=== PATIENT | male | born 1960 | race Caucasian/White ===

== ENCOUNTER 2022-11-13 15:38 | Outpatient (CLI) | payer OTHER ==
--- NOTE | 2022-11-18 10:09 | MRI Report ---
PROCEDURE: KNEE WO - LT INDICATIONS: LEFT KNEE PAIN TECHNIQUE: Noncontrast sagittal PD fast spin echo and T2 fast spin echo with fat saturation, sagittal 3-D gradie nt sequence with fat saturation; coronal T1 spin echo and PD fast spin echo with fat saturation, and axial PD fast spin echo with fat saturation through the knee. COMPARISON: None. FINDINGS: Image quality: Excellent. Menisci: There is large tear of the posterior horn and body of the medial meniscus. The lateral menis cus demonstrates normal morphology and internal signal. The meniscal root ligaments appear intact. Cruciate ligaments: The anterior and posterior cruciate ligaments appear intact. There is mucoid de generation of ACL. Medial structures: The medial collateral ligament appears intact. The tendon insertions and menisco capsular junction appear intact. Visualized portions of the pes anserinus tendons appear normal. No abnormal bursal fluid. Lateral structures: The lateral collateral ligament and the biceps femoris tendon appear intact. Th e popliteus tendon appears normal. Iliotibial band appears normal. Anterior structures: The quadriceps and patellar tendons appear intact. There is low-grade patellar tendinitis. Patellar alignment is normal. No femoral trochlear dysplasia or ventral trochlear promi nence. No edema in the infrapatellar fat pad. Bones and cartilage: No bone marrow contusions or fractures. Tricompartmental cartilage thinning and fibrillation, most pronounced in the medial femorotibial compartment. There is full-thickness carti vamsi defect in the medial femoral condyle and medial tibial plateau with associated bone marrow edema , likely secondary to "[id number]". Joint space: There is small knee joint fluid. No Hodge's cyst. Normal appearing synovial plicae ar e incidentally noted. Note is made of superficial varicosities in the lateral aspect of the knee. IMPRESSION: 1. Medial meniscal tear. 2. Mucoid degeneration of ACL. 3. Tricompartmental cartilage loss, most pronounced in the medial femorotibial compartment. 4. Small knee joint effusion. Reviewed by: Arthur Macario MD on 11/18/2022 10:08 AM PDT Approved by: Arthur Macario MD on 11/18/2022 10:08 AM PDT Station ID: [id number]
== END 2022-11-13 15:39 | disposition home or self-care (01) ==
LOC: DI 15:38
PROVIDERS: ATTEND Nurse Practitioner Family
DX: M23.612 Other spontaneous disruption of anterior cruciate ligament of left knee (principal); M94.262 Chondromalacia, left knee; M25.462 Effusion, left knee